=== PATIENT | male | born 1960 | race African-American/Black ===

== ENCOUNTER 2018-11-15 19:49 | Inpatient (IN) ==
[2018-11-15] MEDS ORDERED: hydrALAZINE 20 MG/1 ML VIAL IV STA (21:04)
[2018-11-15 22:56] LABS: Basophils % 0.5 % (0.0-0.8); Eosinophils # 0.1 10*3/uL (0.0-0.87); Eosinophils % 1.4 % (0.00-10.9); Hematocrit 31.1 VOL% (42.0-52.0); Immature Granulocytes % 0.4 %; Immature Granulocytes Absolute 0.03 #; Lymphocytes # 1.4 10*3/uL (1.4-4.0); Lymphocytes % 17.7 % (21.2-54.2); Mean Corpuscular HGB Conc 28.9 GM/DL (32-36); Mean Corpuscular Hemoglobin 24 PG (27-34); Mean Corpuscular Volume 84.3 FL (87-102); Mean Platelet Volume 10.5 FL (9.6-12.0); Monocytes # 0.6 10*3/uL (0.11-0.8); NRBC # 0.04 10*3/uL; Neutrophils # 5.8 10*3/uL (1.4-7.4); Platelet Count 305 T/CUMM (130-400); Red Blood Count 3.69 MC/CUMM (3.8-5.5); Red Cell Distribution Width 17.7 % (9.3-17.3); White Blood Count 7.9 T/CUMM (4-12)
[2018-11-15 23:01] LABS: Albumin 2.8 G/DL (3.4-5.0); Bilirubin,Total 0.5 MG/DL (0.2-1.0); Calcium 8.4 MG/DL (8.5-10.1); Osmolality,Calculated 287.7 MOS/KG (273-304); Potassium 4.8 MMOL/L (3.5-5.1); Total Protein 9.8 G/DL (6.4-8.3)
[2018-11-15 23:03] LABS: Apearance,Urine Slightly Hazy (Clear); Bilirubin,Urine Negative (Negative); Blood, Urine Small mg/dL (Negative); Glucose,Urine (UA) Negative (Negative); Hyaline Casts,Urine 3 /LPF (0-3); Ketones,Urine Negative (Negative); Mucus,Urine Occasional /LPF (Occasional); Nitrite,Urine Negative (Negative); Protein,Urine 30 MG/DL; RBC,Urine 1 /HPF (0-4); Squamous Epithelial Cell,Urine Occasional /HPF (0-10); Urine Color Yellow (Yellow); Urine Specific Gravity 1.013 (1.001-1.035); Urine Urobilinogen < 2.0 EU/DL (0.2-1.0); WBC,Urine 4 /HPF (0-6)
[2018-11-15] MEDS ORDERED: ENOXAPARIN 100 MG/ML SYRINGE SUBCUT STA (23:17)
[2018-11-15] MEDS ORDERED: ASPIRIN 325 MG TABLET PO STA (23:17)
[2018-11-16] MEDS ORDERED: MAGNESIUM SULF RIDER 4 GM in PREMIX 1 EACH IV PRN (03:08)
[2018-11-16] MEDS ORDERED: FUROSEMIDE 40 MG/4 ML VIAL IV ONE (03:08)
[2018-11-16] MEDS ORDERED: ONDANSETRON 4 MG/2 ML VIAL IV PRN (03:08)
[2018-11-16] MEDS ORDERED: POTASSIUM CHLORIDE 20 MEQ TABLET PO PRN (03:08)
[2018-11-16] MEDS ORDERED: diphenhydrAMINE CAP 25 MG CAPSULE PO PRN (03:08)
[2018-11-16] MEDS ORDERED: BISACODYL 5 MG TABLET PO PRN (03:08)
[2018-11-16] MEDS ORDERED: GLUCAGON 1 MG VIAL IM PRN (03:08)
[2018-11-16] MEDS ORDERED: MORPHINE 4 MG/1 ML VIAL IV PRN (03:08)
[2018-11-16] MEDS ORDERED: NICOTINE 21 MG/24 HR PATCH TRANSDERM PRN (03:08)
[2018-11-16] MEDS ORDERED: MAGNESIUM SULF RIDER 2 GM in PREMIX 1 EACH IV PRN (03:08)
[2018-11-16] MEDS ORDERED: DEXTROSE 50% 25 GM/50 ML SYRINGE IV PRN (03:08)
[2018-11-16] MEDS ORDERED: ACETAMINOPHEN 325 MG TABLET PO PRN (03:08)
[2018-11-16] MEDS ORDERED: LEVOFLOXACIN INJ 500 MG in PREMIX 1 EACH IV SCH (03:08)
[2018-11-16] MEDS: ALBUTEROL/IPRATROPIUM 3 ML NEB RESP TX SCH ×6 (03:50→23:23)
[2018-11-16 05:00] LABS: Basophils % 0.4 % (0.0-0.8); Eosinophils # 0.1 10*3/uL (0.0-0.87); Eosinophils % 1.1 % (0.00-10.9); Hematocrit 30.5 VOL% (42.0-52.0); Immature Granulocytes % 0.7 %; Immature Granulocytes Absolute 0.06 #; Lymphocytes # 1.3 10*3/uL (1.4-4.0); Lymphocytes % 15.4 % (21.2-54.2); Mean Corpuscular HGB Conc 28.5 GM/DL (32-36); Mean Corpuscular Hemoglobin 24 PG (27-34); Mean Corpuscular Volume 84.7 FL (87-102); Mean Platelet Volume 10.6 FL (9.6-12.0); Monocytes # 0.6 10*3/uL (0.11-0.8); Monocytes % 6.5 % (1.7-12.7); NRBC # 0.05 10*3/uL; Neutrophils # 6.4 10*3/uL (1.4-7.4); Neutrophils % 75.9 % (38.7-73.9); Platelet Count 292 T/CUMM (130-400); Red Cell Distribution Width 17.7 % (9.3-17.3); White Blood Count 8.4 T/CUMM (4-12)
[2018-11-16 05:02] LABS: Hemoglobin 8.7 GM/DL (14.0-18.0)
[2018-11-16 05:03] LABS: Calcium 8.6 MG/DL (8.5-10.1); Osmolality,Calculated 291.5 MOS/KG (273-304); Potassium 4.1 MMOL/L (3.5-5.1); Risk Ratio 2.32; Thyroid Stimulating Hormone 2.63 uIU/ml (0.358-3.74); VLDL CHOLESTEROL 12.2 MG/DL
[2018-11-16 05:04] LABS: Troponin I 0.051 NG/ML (0.00-0.045)
[2018-11-16 05:10] LABS: Hypochromasia 1+; Platelet Estimate Adequate
[2018-11-16 05:11] LABS: Ovalocytes Slight
[2018-11-16] MEDS: ENOXAPARIN 40 MG/0.4 ML SYRINGE SUBCUT SCH (09:31)
[2018-11-16] MEDS: INSULIN REGULAR 100 UNIT/ML SUBCUT SCH ×4 (09:31→22:50)
[2018-11-16] MEDS: PANTOPRAZOLE 40 MG TABLET PO SCH (09:32)
[2018-11-16] MEDS ORDERED: hydrALAZINE 20 MG/1 ML VIAL IV PRN (17:49)
[2018-11-16] MEDS: cefTRIAXone 1,000 MG in SYRINGE 1 EACH IV SCH (18:13)
[2018-11-16] MEDS: AZITHROMYCIN INJ 500 MG in SODIUM CHLORIDE 0.9% 250 ML IV SCH (18:19)
[2018-11-17] MEDS: ALBUTEROL/IPRATROPIUM 3 ML NEB RESP TX SCH ×6 (02:44→23:41)
[2018-11-17] MEDS: INSULIN REGULAR 100 UNIT/ML SUBCUT SCH ×4 (08:52→20:44)
[2018-11-17] MEDS: PANTOPRAZOLE 40 MG TABLET PO SCH (08:52)
[2018-11-17] MEDS: FUROSEMIDE 40 MG/4 ML VIAL IV SCH (08:53)
[2018-11-17] MEDS: ENOXAPARIN 40 MG/0.4 ML SYRINGE SUBCUT SCH (10:31)
[2018-11-17] MEDS: SODIUM CHLORIDE 0.9% 1,000 ML IV SCH (16:20)
[2018-11-17] MEDS: cefTRIAXone 1,000 MG in SYRINGE 1 EACH IV SCH (18:20)
[2018-11-17] MEDS: AZITHROMYCIN INJ 500 MG in SODIUM CHLORIDE 0.9% 250 ML IV SCH (18:25)
[2018-11-18] MEDS: ALBUTEROL/IPRATROPIUM 3 ML NEB RESP TX SCH ×6 (02:41→23:33)
[2018-11-18 07:20] LABS: Calcium 8.5 MG/DL (8.5-10.1); Potassium 4.3 MMOL/L (3.5-5.1)
[2018-11-18] MEDS: PANTOPRAZOLE 40 MG TABLET PO SCH (08:29)
[2018-11-18] MEDS: INSULIN REGULAR 100 UNIT/ML SUBCUT SCH ×4 (08:30→20:43)
[2018-11-18] MEDS: FUROSEMIDE 40 MG/4 ML VIAL IV SCH ×2 (08:30→17:05)
[2018-11-18] MEDS: ENOXAPARIN 40 MG/0.4 ML SYRINGE SUBCUT SCH (08:34)
[2018-11-18] MEDS: SODIUM CHLORIDE 0.9% 1,000 ML IV SCH (15:47)
[2018-11-18] MEDS: AZITHROMYCIN 250 MG TABLET PO SCH (17:17)
[2018-11-18] MEDS: cefTRIAXone 1,000 MG in SYRINGE 1 EACH IV SCH (17:18)
[2018-11-19] MEDS: SODIUM CHLORIDE 0.9% 1,000 ML IV SCH ×2 (02:00→15:06)
[2018-11-19] MEDS: ALBUTEROL/IPRATROPIUM 3 ML NEB RESP TX SCH ×4 (03:31→14:22)
[2018-11-19] MEDS: INSULIN REGULAR 100 UNIT/ML SUBCUT SCH ×3 (09:29→16:35)
[2018-11-19] MEDS: ENOXAPARIN 40 MG/0.4 ML SYRINGE SUBCUT SCH (09:30)
[2018-11-19] MEDS: AZITHROMYCIN 250 MG TABLET PO SCH (09:31)
[2018-11-19] MEDS: FUROSEMIDE 40 MG/4 ML VIAL IV SCH ×2 (09:31→15:06)
[2018-11-19] MEDS: PANTOPRAZOLE 40 MG TABLET PO SCH (09:31)
[2018-11-19 09:47] LABS: Calcium 8.4 MG/DL (8.5-10.1); Osmolality,Calculated 285.2 MOS/KG (273-304); Potassium 4.2 MMOL/L (3.5-5.1)
[2018-11-19] MEDS ORDERED: INSULIN GLARGINE 100 UNIT/ML SUBCUT SCH (10:00)
[2018-11-19] MEDS ORDERED: SILVER NITRATE STICK 1 EACH TOP ONE (12:47)
[2018-11-19 17:21] VITALS: BP 136/62
[2018-11-19] MEDS: cefTRIAXone 1,000 MG in SYRINGE 1 EACH IV SCH (17:52)
== END 2018-11-19 19:25 | disposition home health service (06) | DRG 194 ==
LOC: N.ED 19:49 → N.EDINP 19:49 → N.TELES 11-16 00:08
PROVIDERS: ADMIT Internal Medicine; ATTEND Internal Medicine

== ENCOUNTER 2018-11-29 21:04 | Inpatient (IN) ==
[2018-11-29] MEDS ORDERED: FUROSEMIDE 100 MG/10 ML VIAL IV STA (21:15)
[2018-11-29] MEDS ORDERED: ONDANSETRON 4 MG/2 ML VIAL IV STA (21:15)
[2018-11-29] MEDS ORDERED: NITROGLYCERIN 2% OINT 1 INCH/GM PACK TOP STA (21:15)
[2018-11-29] MEDS ORDERED: ALBUTEROL/IPRATROPIUM 3 ML NEB RESP TX STA (21:15)
[2018-11-29] MEDS ORDERED: ASPIRIN 325 MG TABLET PO STA (21:15)
[2018-11-29] MEDS ORDERED: MORPHINE 4 MG/1 ML VIAL IV STA (21:15)
[2018-11-29 21:35] LABS: INR 1.1; PT Patient Result 11.7 SECS
[2018-11-29 21:45] LABS: Basophils # 0.1 10*3/uL (0.0-0.2); Basophils % 0.5 % (0.0-0.8); Eosinophils # 0.2 10*3/uL (0.0-0.87); Eosinophils % 1.7 % (0.00-10.9); Hematocrit 28.2 VOL% (42.0-52.0); Hemoglobin 7.9 GM/DL (14.0-18.0); Immature Granulocytes % 0.8 %; Immature Granulocytes Absolute 0.08 #; Lymphocytes # 1.1 10*3/uL (1.4-4.0); Mean Corpuscular Hemoglobin 24 PG (27-34); Mean Corpuscular Volume 84.4 FL (87-102); Mean Platelet Volume 9.9 FL (9.6-12.0); Monocytes # 0.7 10*3/uL (0.11-0.8); Monocytes % 7.3 % (1.7-12.7); NRBC # 0.07 10*3/uL; Neutrophils # 7.7 10*3/uL (1.4-7.4); Neutrophils % 78.7 % (38.7-73.9); Platelet Count 333 T/CUMM (130-400); Red Blood Count 3.34 MC/CUMM (3.8-5.5); Red Cell Distribution Width 17.9 % (9.3-17.3); White Blood Count 9.7 T/CUMM (4-12)
[2018-11-29 21:48] LABS: Albumin 2.7 G/DL (3.4-5.0); Bilirubin,Total 0.4 MG/DL (0.2-1.0); Calcium 8.2 MG/DL (8.5-10.1); Osmolality,Calculated 289.7 MOS/KG (273-304); Potassium 4.2 MMOL/L (3.5-5.1); Total Protein 9.9 G/DL (6.4-8.3)
[2018-11-29 22:41] LABS: ABG Base Excess 3.8 MMOL/L (-2.5-2.5); ABG HCO3 33.6 MMOL/L (20-26); ABG Oxygen Saturation 98.7 % (95-100); ABG PO2 172.8 MM HG (80-95); ABG TCO2 36.4 MMOL/L (23-27); Allen Test Positive; Pt O2 Delivery Device Other
[2018-11-29 22:44] LABS: ABG PCO2 92.5 MM HG (35-48); ABG PH 7.178 (7.35-7.45)
[2018-11-29 22:45] LABS: Apearance,Urine CLEAR (Clear); Bacteria,Urine Occasional /HPF (Few); Bilirubin,Urine Negative (Negative); Blood, Urine Small mg/dL (Negative); Glucose,Urine (UA) Negative (Negative); Ketones,Urine Negative (Negative); Mucus,Urine Occasional /LPF (Occasional); Nitrite,Urine Negative (Negative); Protein,Urine Negative; RBC,Urine 2 /HPF (0-4); Squamous Epithelial Cell,Urine Occasional /HPF (0-10); Urine Color Straw (Yellow); Urine Specific Gravity 1.006 (1.001-1.035); Urine Urobilinogen < 2.0 EU/DL (0.2-1.0); WBC,Urine 2 /HPF (0-6)
[2018-11-29 22:51] LABS: Anisocytosis 1+; Hypochromasia 1+; Poikilocytosis 1+; Polychromasia Slight
[2018-11-29 22:52] LABS: Platelet Estimate Normal
[2018-11-29] MEDS ORDERED: ONDANSETRON 4 MG/2 ML VIAL IV PRN (22:58)
[2018-11-29] MEDS ORDERED: DEXTROSE 50% 25 GM/50 ML VIAL IV PRN (23:05)
[2018-11-29] MEDS ORDERED: GLUCAGON 1 MG VIAL IM PRN (23:05)
[2018-11-30 00:08] LABS: ABG Base Excess 3.5 MMOL/L (-2.5-2.5); ABG HCO3 33.6 MMOL/L (20-26); ABG PO2 135.8 MM HG (80-95); ABG TCO2 36.6 MMOL/L (23-27); Allen Test Positive; Pt O2 Delivery Device Other
[2018-11-30 00:14] LABS: ABG PH 7.162 (7.35-7.45)
[2018-11-30] MEDS ORDERED: FUROSEMIDE 40 MG/4 ML VIAL IV ONE (00:35)
[2018-11-30 02:22] LABS: ABG Base Excess 0.6 MMOL/L (-2.5-2.5); ABG Oxygen Saturation 95.5 % (95-100); ABG TCO2 29.7 MMOL/L (23-27); Allen Test Positive; Pt O2 Delivery Device BIPAP
[2018-11-30 02:25] LABS: ABG PCO2 84.5 MM HG (35-48); ABG PH 7.169 (7.35-7.45)
[2018-11-30] MEDS: INSULIN LISPRO 100 UNIT/ML SUBCUT SCH ×5 (02:32→23:54)
[2018-11-30] MEDS: HEPARIN 5,000 UNIT/1 ML VIAL SUBCUT SCH ×4 (02:50→23:07)
[2018-11-30] MEDS: ALBUTEROL/IPRATROPIUM 3 ML NEB RESP TX SCH ×6 (03:20→23:58)
[2018-11-30 04:19] LABS: ABG Base Excess 1.7 MMOL/L (-2.5-2.5); ABG HCO3 25.9 MMOL/L (20-26); ABG Oxygen Saturation 92.2 % (95-100); ABG PO2 76.1 MM HG (80-95); ABG TCO2 30.4 MMOL/L (23-27); Allen Test Positive; Pt O2 Delivery Device BIPAP
[2018-11-30 04:38] LABS: ABG PCO2 83.4 MM HG (35-48); ABG PH 7.189 (7.35-7.45)
[2018-11-30 05:01] LABS: Basophils % 0.4 % (0.0-0.8); Eosinophils # 0.1 10*3/uL (0.0-0.87); Eosinophils % 1.1 % (0.00-10.9); Hematocrit 27.7 VOL% (42.0-52.0); Immature Granulocytes % 1.8 %; Immature Granulocytes Absolute 0.19 #; Lymphocytes # 0.8 10*3/uL (1.4-4.0); Lymphocytes % 7.3 % (21.2-54.2); Mean Corpuscular HGB Conc 28.2 GM/DL (32-36); Mean Corpuscular Hemoglobin 24 PG (27-34); Mean Corpuscular Volume 86.3 FL (87-102); Mean Platelet Volume 9.6 FL (9.6-12.0); Monocytes # 0.8 10*3/uL (0.11-0.8); Monocytes % 7.1 % (1.7-12.7); NRBC # 0.06 10*3/uL; Neutrophils # 8.9 10*3/uL (1.4-7.4); Neutrophils % 82.3 % (38.7-73.9); Platelet Count 303 T/CUMM (130-400); Red Blood Count 3.21 MC/CUMM (3.8-5.5); White Blood Count 10.8 T/CUMM (4-12)
[2018-11-30 05:12] LABS: Hemoglobin 7.8 GM/DL (14.0-18.0)
[2018-11-30 05:18] LABS: Calcium 8.3 MG/DL (8.5-10.1); Osmolality,Calculated 288.8 MOS/KG (273-304); Potassium 4.8 MMOL/L (3.5-5.1)
[2018-11-30 05:19] LABS: Platelet Estimate Adequate
[2018-11-30 05:20] LABS: Hypochromasia 1+
[2018-11-30 05:21] LABS: Troponin I < 0.015 NG/ML (0.00-0.045)
[2018-11-30] MEDS ORDERED: FUROSEMIDE 40 MG/4 ML VIAL IV SCH (08:00)
[2018-11-30] MEDS: FUROSEMIDE 40 MG/4 ML VIAL IV SCH ×2 (08:25→16:00)
[2018-11-30] MEDS ORDERED: ASPIRIN EC 325 MG TABLET PO SCH (09:00)
[2018-11-30] MEDS ORDERED: PANTOPRAZOLE 40 MG TABLET PO SCH (09:00)
[2018-11-30] MEDS: GABAPENTIN 100 MG CAPSULE PO SCH ×3 (10:10→20:40)
[2018-11-30] MEDS: ROSUVASTATIN 20 MG TABLET PO SCH (10:10)
[2018-11-30] MEDS: INSULIN GLARGINE 100 UNIT/ML SUBCUT SCH (10:10)
[2018-11-30 11:35] LABS: Creatinine,Urine Random 22 MG/DL; Total Protein,Urine Random 22 MG/DL; Urea Nitrogen, Urine Random 231 MG/DL
[2018-11-30 13:00] LABS: Immuno Free Light Chain Kappa 20.58 MG/DL (0.33-1.94); Immuno Free Light Chain Lambda 14.62 MG/DL (0.57-2.63); Immuno Free Light Chain Ratio 1.41 MG/DL (0.26-1.65)
[2018-11-30 13:13] LABS: Troponin I < 0.015 NG/ML (0.00-0.045)
[2018-11-30 13:27] LABS: ABG Base Excess 3.1 MMOL/L (-2.5-2.5); ABG HCO3 27.2 MMOL/L (20-26); ABG PH 7.241 (7.35-7.45); ABG PO2 76.8 MM HG (80-95); ABG TCO2 30.5 MMOL/L (23-27); Pt O2 Delivery Device Other
[2018-11-30 13:28] LABS: ABG PCO2 74.2 MM HG (35-48)
[2018-11-30] MEDS: methylPREDNISolone SOD SUC 40 MG/1 ML VIAL IV SCH (18:15)
[2018-11-30] MEDS: miSOPROStol 200 MCG TABLET PO SCH ×2 (18:20→20:40)
[2018-11-30] MEDS ORDERED: CARVEDILOL 3.125 MG TABLET PO SCH (21:00)
[2018-12-01] MEDS: methylPREDNISolone SOD SUC 40 MG/1 ML VIAL IV SCH ×3 (01:42→17:40)
[2018-12-01] MEDS: ALBUTEROL/IPRATROPIUM 3 ML NEB RESP TX SCH ×6 (03:20→23:16)
[2018-12-01] MEDS: INSULIN LISPRO 100 UNIT/ML SUBCUT SCH ×3 (05:30→17:39)
[2018-12-01 06:28] LABS: Calcium 8.7 MG/DL (8.5-10.1); Osmolality,Calculated 289.1 MOS/KG (273-304); Potassium 5.4 MMOL/L (3.5-5.1)
[2018-12-01 06:46] LABS: Basophils % 0.1 % (0.0-0.8); Hematocrit 27.8 VOL% (42.0-52.0); Immature Granulocytes % 1.4 %; Immature Granulocytes Absolute 0.15 #; Lymphocytes # 0.6 10*3/uL (1.4-4.0); Lymphocytes % 5.2 % (21.2-54.2); Mean Corpuscular HGB Conc 27.3 GM/DL (32-36); Mean Corpuscular Hemoglobin 24 PG (27-34); Mean Corpuscular Volume 87.4 FL (87-102); Mean Platelet Volume 10.4 FL (9.6-12.0); Monocytes # 0.2 10*3/uL (0.11-0.8); Monocytes % 2.2 % (1.7-12.7); NRBC # 0.04 10*3/uL; Neutrophils # 9.7 10*3/uL (1.4-7.4); Neutrophils % 91.1 % (38.7-73.9); Platelet Count 299 T/CUMM (130-400); Red Blood Count 3.18 MC/CUMM (3.8-5.5); Red Cell Distribution Width 18.3 % (9.3-17.3); White Blood Count 10.7 T/CUMM (4-12)
[2018-12-01 06:49] LABS: Hemoglobin 7.6 GM/DL (14.0-18.0)
[2018-12-01 06:50] LABS: Hypochromasia 1+; Ovalocytes Slight; Platelet Estimate Adequate
[2018-12-01] MEDS: miSOPROStol 200 MCG TABLET PO SCH ×4 (08:47→21:42)
[2018-12-01] MEDS: ROSUVASTATIN 20 MG TABLET PO SCH (08:47)
[2018-12-01] MEDS: THEOPHYLLINE ER (24 HR) 400 MG CAPSULE PO SCH (08:48)
[2018-12-01] MEDS: CARVEDILOL 6.25 MG TABLET PO SCH ×2 (08:48→21:42)
[2018-12-01] MEDS: HEPARIN 5,000 UNIT/1 ML VIAL SUBCUT SCH ×2 (08:48→16:25)
[2018-12-01] MEDS: GABAPENTIN 100 MG CAPSULE PO SCH (08:48)
[2018-12-01] MEDS: ASPIRIN EC 81 MG TABLET PO SCH (08:48)
[2018-12-01] MEDS: INSULIN GLARGINE 100 UNIT/ML SUBCUT SCH (08:49)
[2018-12-01 08:58] LABS: Albumin (SPE) 3.5 G/DL (3.2-5.3); Albumin (SPE) Rel % 35.5 %; Alpha 1 (SPE) 0.4 G/DL (0.1-0.4); Alpha 1 (SPE) Rel % 4.4 %; Alpha 2 (SPE) 0.9 G/DL (0.4-1.0); Alpha 2 (SPE) Rel % 9.5 %; Beta (SPE) 0.9 G/DL (0.5-1.1); Beta (SPE) Rel % 9.3 %; Gamma (SPE) 4.1 G/DL (0.7-1.7); Gamma (SPE) Rel % 41.3 %
[2018-12-01 08:59] LABS: ABG Base Excess 1.3 MMOL/L (-2.5-2.5); ABG HCO3 25.6 MMOL/L (20-26); ABG Oxygen Saturation 94.8 % (95-100); ABG PH 7.228 (7.35-7.45); ABG PO2 79.6 MM HG (80-95); ABG TCO2 28.8 MMOL/L (23-27); Allen Test Positive; Pt O2 Delivery Device Other
[2018-12-01 09:02] LABS: ABG PCO2 72.1 MM HG (35-48)
[2018-12-01 10:09] LABS: Random Urine Protein (Bench) 22 MG/DL (<11.9)
[2018-12-01] MEDS: ALLOPURINOL 100 MG TABLET PO SCH ×2 (10:21→21:42)
[2018-12-02] MEDS: HEPARIN 5,000 UNIT/1 ML VIAL SUBCUT SCH ×3 (00:13→16:01)
[2018-12-02] MEDS: INSULIN LISPRO 100 UNIT/ML SUBCUT SCH ×4 (00:13→17:42)
[2018-12-02] MEDS ORDERED: hydrALAZINE 20 MG/1 ML VIAL IV PRN (01:07)
[2018-12-02] MEDS: methylPREDNISolone SOD SUC 40 MG/1 ML VIAL IV SCH ×3 (04:16→20:33)
[2018-12-02] MEDS: ALBUTEROL/IPRATROPIUM 3 ML NEB RESP TX SCH ×6 (04:32→23:00)
[2018-12-02 04:47] LABS: ABG HCO3 26.2 MMOL/L (20-26); ABG Oxygen Saturation 94.6 % (95-100); ABG PO2 80.9 MM HG (80-95); Allen Test Positive; Pt O2 Delivery Device Other
[2018-12-02 04:50] LABS: ABG PCO2 69.2 MM HG (35-48)
[2018-12-02 06:28] LABS: Albumin 2.6 G/DL (3.4-5.0); Bilirubin,Total 0.7 MG/DL (0.2-1.0); Calcium 8.8 MG/DL (8.5-10.1); Osmolality,Calculated 295.7 MOS/KG (273-304); Potassium 5.1 MMOL/L (3.5-5.1); Total Protein 9.7 G/DL (6.4-8.3)
[2018-12-02 07:25] LABS: Basophils % 0.1 % (0.0-0.8); Hematocrit 25.3 VOL% (42.0-52.0); Immature Granulocytes % 1.3 %; Immature Granulocytes Absolute 0.17 #; Lymphocytes # 0.7 10*3/uL (1.4-4.0); Lymphocytes % 5.5 % (21.2-54.2); Mean Corpuscular HGB Conc 28.5 GM/DL (32-36); Mean Corpuscular Hemoglobin 24 PG (27-34); Mean Corpuscular Volume 85.5 FL (87-102); Mean Platelet Volume 10.1 FL (9.6-12.0); Monocytes # 0.8 10*3/uL (0.11-0.8); Monocytes % 6.6 % (1.7-12.7); NRBC # 0.19 10*3/uL; Neutrophils # 11.1 10*3/uL (1.4-7.4); Neutrophils % 86.5 % (38.7-73.9); Platelet Count 297 T/CUMM (130-400); Red Blood Count 2.96 MC/CUMM (3.8-5.5); Red Cell Distribution Width 18.3 % (9.3-17.3); White Blood Count 12.8 T/CUMM (4-12)
[2018-12-02 07:27] LABS: Hemoglobin 7.2 GM/DL (14.0-18.0); Hypochromasia 1+; Ovalocytes Slight; Platelet Estimate Adequate
[2018-12-02] MEDS: INSULIN GLARGINE 100 UNIT/ML SUBCUT SCH (08:58)
[2018-12-02] MEDS: THEOPHYLLINE ER (24 HR) 400 MG CAPSULE PO SCH (08:59)
[2018-12-02] MEDS: GABAPENTIN 100 MG CAPSULE PO SCH ×2 (08:59→20:33)
[2018-12-02] MEDS: miSOPROStol 200 MCG TABLET PO SCH ×4 (08:59→20:33)
[2018-12-02] MEDS: CARVEDILOL 6.25 MG TABLET PO SCH ×2 (09:00→20:33)
[2018-12-02] MEDS: ROSUVASTATIN 20 MG TABLET PO SCH (09:00)
[2018-12-02] MEDS: ASPIRIN EC 81 MG TABLET PO SCH (09:00)
[2018-12-02] MEDS: ALLOPURINOL 100 MG TABLET PO SCH ×2 (09:00→20:33)
[2018-12-02] MEDS ORDERED: SODIUM CHLORIDE 0.9% 250 ML IV ONE (20:58)
[2018-12-02] MEDS ORDERED: INSULIN REGULAR 100 UNIT/ML IV ONE (20:59)
[2018-12-02 21:58] LABS: Calcium 8.3 MG/DL (8.5-10.1); Osmolality,Calculated 300.2 MOS/KG (273-304)
[2018-12-02] MEDS ORDERED: SODIUM POLYSTYRENE SULFATE 15 GM/60 ML BOTTLE PO ONE (22:04)
[2018-12-02] MEDS ORDERED: ALBUTEROL NEB SOLN 5 MG/ML 20 ML/BOTTLE CONT NEB ONE (22:05)
[2018-12-03] MEDS: HEPARIN 5,000 UNIT/1 ML VIAL SUBCUT SCH ×4 (00:14→23:36)
[2018-12-03] MEDS: INSULIN LISPRO 100 UNIT/ML SUBCUT SCH ×5 (00:15→20:48)
[2018-12-03] MEDS: ALBUTEROL/IPRATROPIUM 3 ML NEB RESP TX SCH ×6 (03:09→23:27)
[2018-12-03 04:29] LABS: Calcium 8.4 MG/DL (8.5-10.1); Osmolality,Calculated 300.8 MOS/KG (273-304)
[2018-12-03 04:33] LABS: ABG Base Excess 2.7 MMOL/L (-2.5-2.5); ABG HCO3 26.7 MMOL/L (20-26); ABG PCO2 58.4 MM HG (35-48); ABG PH 7.314 (7.35-7.45); ABG PO2 69.9 MM HG (80-95); ABG TCO2 28.1 MMOL/L (23-27); Allen Test Positive; Pt O2 Delivery Device Other
[2018-12-03] MEDS: GABAPENTIN 100 MG CAPSULE PO SCH ×2 (08:53→20:46)
[2018-12-03] MEDS: miSOPROStol 200 MCG TABLET PO SCH (08:53)
[2018-12-03] MEDS: ROSUVASTATIN 20 MG TABLET PO SCH (08:54)
[2018-12-03] MEDS: THEOPHYLLINE ER (24 HR) 400 MG CAPSULE PO SCH (08:54)
[2018-12-03] MEDS: ALLOPURINOL 100 MG TABLET PO SCH (08:54)
[2018-12-03] MEDS: ASPIRIN EC 81 MG TABLET PO SCH (08:55)
[2018-12-03] MEDS: methylPREDNISolone SOD SUC 40 MG/1 ML VIAL IV SCH ×2 (08:55→20:46)
[2018-12-03] MEDS: CARVEDILOL 6.25 MG TABLET PO SCH ×2 (08:55→20:48)
[2018-12-03] MEDS: FUROSEMIDE 40 MG/4 ML VIAL IV SCH ×2 (08:56→17:21)
[2018-12-03] MEDS: INSULIN GLARGINE 100 UNIT/ML SUBCUT SCH (08:57)
[2018-12-03] MEDS: ALLOPURINOL 300 MG TABLET PO SCH (12:02)
[2018-12-03] MEDS: FAMOTIDINE 20 MG TABLET PO SCH (12:02)
[2018-12-03] MEDS ORDERED: FUROSEMIDE 40 MG/4 ML VIAL IV SCH (16:00)
[2018-12-04] MEDS: ALBUTEROL/IPRATROPIUM 3 ML NEB RESP TX SCH ×6 (03:09→22:48)
[2018-12-04 05:47] LABS: Basophils % 0.1 % (0.0-0.8); Hematocrit 25.7 VOL% (42.0-52.0); Hemoglobin 7.3 GM/DL (14.0-18.0); Immature Granulocytes % 0.9 %; Lymphocytes # 0.7 10*3/uL (1.4-4.0); Lymphocytes % 6.4 % (21.2-54.2); Mean Corpuscular HGB Conc 28.4 GM/DL (32-36); Mean Corpuscular Hemoglobin 24 PG (27-34); Mean Corpuscular Volume 82.9 FL (87-102); Mean Platelet Volume 9.7 FL (9.6-12.0); Monocytes # 0.6 10*3/uL (0.11-0.8); Monocytes % 5.1 % (1.7-12.7); NRBC # 0.34 10*3/uL; Neutrophils # 9.8 10*3/uL (1.4-7.4); Neutrophils % 87.5 % (38.7-73.9); Platelet Count 310 T/CUMM (130-400); Red Cell Distribution Width 17.8 % (9.3-17.3); White Blood Count 11.2 T/CUMM (4-12)
[2018-12-04 06:09] LABS: Calcium 8.4 MG/DL (8.5-10.1); Osmolality,Calculated 307.4 MOS/KG (273-304); Potassium 4.7 MMOL/L (3.5-5.1)
[2018-12-04 06:10] LABS: Anisocytosis 1+; Macrocytosis 1+; Platelet Estimate Normal; Target Cells 1+
[2018-12-04] MEDS: ROSUVASTATIN 20 MG TABLET PO SCH (08:29)
[2018-12-04] MEDS: THEOPHYLLINE ER (24 HR) 400 MG CAPSULE PO SCH (08:29)
[2018-12-04] MEDS: ASPIRIN EC 81 MG TABLET PO SCH (08:30)
[2018-12-04] MEDS: methylPREDNISolone SOD SUC 40 MG/1 ML VIAL IV SCH ×2 (08:30→20:11)
[2018-12-04] MEDS: ALLOPURINOL 300 MG TABLET PO SCH (08:30)
[2018-12-04] MEDS: FUROSEMIDE 40 MG/4 ML VIAL IV SCH ×2 (08:30→17:23)
[2018-12-04] MEDS: FAMOTIDINE 20 MG TABLET PO SCH (08:30)
[2018-12-04] MEDS: CARVEDILOL 6.25 MG TABLET PO SCH ×2 (08:30→20:09)
[2018-12-04] MEDS: HEPARIN 5,000 UNIT/1 ML VIAL SUBCUT SCH ×3 (08:30→23:48)
[2018-12-04] MEDS: GABAPENTIN 100 MG CAPSULE PO SCH ×2 (08:30→20:09)
[2018-12-04] MEDS: INSULIN LISPRO 100 UNIT/ML SUBCUT SCH ×4 (08:31→20:53)
[2018-12-04] MEDS: INSULIN GLARGINE 100 UNIT/ML SUBCUT SCH (08:31)
[2018-12-04] MEDS ORDERED: INSULIN GLARGINE 100 UNIT/ML SUBCUT SCH (08:42)
[2018-12-04] MEDS ORDERED: INSULIN GLARGINE 100 UNIT/ML SUBCUT ONE (09:30)
[2018-12-04] MEDS ORDERED: INSULIN REGULAR 100 UNIT/ML SUBCUT ONE (14:39)
[2018-12-04] MEDS: POLYETHYLENE GLYCOL POWDER 17 GM PACK PO SCH (17:25)
[2018-12-04] MEDS ORDERED: predniSONE 10 MG TABLET PO ONE (19:31)
[2018-12-05] MEDS: ALBUTEROL/IPRATROPIUM 3 ML NEB RESP TX SCH ×6 (02:38→23:55)
[2018-12-05 05:16] LABS: Basophils % 0.1 % (0.0-0.8); Eosinophils % 0.1 % (0.00-10.9); Hematocrit 25.6 VOL% (42.0-52.0); Hemoglobin 7.3 GM/DL (14.0-18.0); Immature Granulocytes Absolute 0.12 #; Lymphocytes % 8.2 % (21.2-54.2); Mean Corpuscular HGB Conc 28.5 GM/DL (32-36); Mean Corpuscular Hemoglobin 23 PG (27-34); Mean Corpuscular Volume 82.1 FL (87-102); Mean Platelet Volume 10.6 FL (9.6-12.0); Monocytes # 1.7 10*3/uL (0.11-0.8); Monocytes % 13.2 % (1.7-12.7); NRBC # 0.48 10*3/uL; Neutrophils # 9.7 10*3/uL (1.4-7.4); Neutrophils % 77.4 % (38.7-73.9); Platelet Count 324 T/CUMM (130-400); Red Blood Count 3.12 MC/CUMM (3.8-5.5); Red Cell Distribution Width 17.7 % (9.3-17.3); White Blood Count 12.6 T/CUMM (4-12)
[2018-12-05 05:38] LABS: Calcium 8.6 MG/DL (8.5-10.1); Osmolality,Calculated 310.2 MOS/KG (273-304); Potassium 4.2 MMOL/L (3.5-5.1)
[2018-12-05 05:42] LABS: Platelet Estimate Normal; Polychromasia Few
[2018-12-05 05:43] LABS: Hypochromasia Slight
[2018-12-05] MEDS: INSULIN LISPRO 100 UNIT/ML SUBCUT SCH ×4 (06:42→22:37)
[2018-12-05] MEDS: HEPARIN 5,000 UNIT/1 ML VIAL SUBCUT SCH ×3 (06:43→23:32)
[2018-12-05] MEDS ORDERED: INSULIN GLARGINE 100 UNIT/ML SUBCUT SCH (09:00)
[2018-12-05] MEDS: GABAPENTIN 100 MG CAPSULE PO SCH ×2 (09:11→20:10)
[2018-12-05] MEDS: ASPIRIN EC 81 MG TABLET PO SCH (09:11)
[2018-12-05] MEDS: ROSUVASTATIN 20 MG TABLET PO SCH (09:11)
[2018-12-05] MEDS: FAMOTIDINE 20 MG TABLET PO SCH (09:11)
[2018-12-05] MEDS: CARVEDILOL 6.25 MG TABLET PO SCH ×2 (09:11→20:10)
[2018-12-05] MEDS: THEOPHYLLINE ER (24 HR) 400 MG CAPSULE PO SCH (09:11)
[2018-12-05] MEDS: POLYETHYLENE GLYCOL POWDER 17 GM PACK PO SCH (09:12)
[2018-12-05] MEDS: FUROSEMIDE 40 MG/4 ML VIAL IV SCH ×2 (09:12→18:00)
[2018-12-05] MEDS: methylPREDNISolone SOD SUC 40 MG/1 ML VIAL IV SCH (09:12)
[2018-12-05] MEDS: ALLOPURINOL 300 MG TABLET PO SCH (09:12)
[2018-12-05] MEDS: INSULIN GLARGINE 100 UNIT/ML SUBCUT SCH (09:12)
[2018-12-05] MEDS ORDERED: INSULIN GLARGINE 100 UNIT/ML SUBCUT ONE (09:30)
[2018-12-05] MEDS ORDERED: MELATONIN 3 MG TABLET PO PRN (09:47)
[2018-12-06] MEDS: ALBUTEROL/IPRATROPIUM 3 ML NEB RESP TX SCH ×6 (03:41→23:04)
[2018-12-06 04:19] LABS: Basophils % 0.1 % (0.0-0.8); Eosinophils % 0.3 % (0.00-10.9); Hematocrit 26.3 VOL% (42.0-52.0); Hemoglobin 7.5 GM/DL (14.0-18.0); Immature Granulocytes % 1.3 %; Immature Granulocytes Absolute 0.15 #; Lymphocytes # 1.9 10*3/uL (1.4-4.0); Lymphocytes % 15.9 % (21.2-54.2); Mean Corpuscular HGB Conc 28.5 GM/DL (32-36); Mean Corpuscular Hemoglobin 24 PG (27-34); Mean Platelet Volume 10.3 FL (9.6-12.0); Monocytes # 1.7 10*3/uL (0.11-0.8); Monocytes % 14.2 % (1.7-12.7); NRBC # 0.36 10*3/uL; Neutrophils # 8.2 10*3/uL (1.4-7.4); Neutrophils % 68.2 % (38.7-73.9); Platelet Count 322 T/CUMM (130-400); Red Blood Count 3.17 MC/CUMM (3.8-5.5); Red Cell Distribution Width 17.7 % (9.3-17.3); White Blood Count 11.9 T/CUMM (4-12)
[2018-12-06 04:52] LABS: Calcium 8.6 MG/DL (8.5-10.1)
[2018-12-06 04:57] LABS: Hypochromasia 1+; Platelet Estimate Adequate
[2018-12-06] MEDS: HEPARIN 5,000 UNIT/1 ML VIAL SUBCUT SCH ×3 (07:03→22:58)
[2018-12-06] MEDS: INSULIN LISPRO 100 UNIT/ML SUBCUT SCH ×5 (09:02→21:44)
[2018-12-06] MEDS: FUROSEMIDE 40 MG/4 ML VIAL IV SCH (09:05)
[2018-12-06] MEDS: ALLOPURINOL 300 MG TABLET PO SCH (09:06)
[2018-12-06] MEDS: GABAPENTIN 100 MG CAPSULE PO SCH ×2 (09:06→21:44)
[2018-12-06] MEDS: ROSUVASTATIN 20 MG TABLET PO SCH (09:06)
[2018-12-06] MEDS: ASPIRIN EC 81 MG TABLET PO SCH (09:06)
[2018-12-06] MEDS: INSULIN GLARGINE 100 UNIT/ML SUBCUT SCH (09:06)
[2018-12-06] MEDS: CARVEDILOL 6.25 MG TABLET PO SCH ×2 (09:06→21:44)
[2018-12-06] MEDS: predniSONE 10 MG TABLET PO SCH (09:06)
[2018-12-06] MEDS: FAMOTIDINE 20 MG TABLET PO SCH (09:07)
[2018-12-06] MEDS: POLYETHYLENE GLYCOL POWDER 17 GM PACK PO SCH (09:07)
[2018-12-06] MEDS: THEOPHYLLINE ER (24 HR) 400 MG CAPSULE PO SCH (09:07)
[2018-12-06] MEDS: FUROSEMIDE 80 MG TABLET PO SCH (17:30)
[2018-12-06] MEDS ORDERED: BISACODYL 5 MG TABLET PO ONE (21:00)
[2018-12-07] MEDS: ALBUTEROL/IPRATROPIUM 3 ML NEB RESP TX SCH ×6 (02:45→23:00)
[2018-12-07 07:20] LABS: Eosinophils # 0.1 10*3/uL (0.0-0.87); Hematocrit 26.8 VOL% (42.0-52.0); Hemoglobin 7.7 GM/DL (14.0-18.0); Immature Granulocytes % 0.8 %; Immature Granulocytes Absolute 0.09 #; Lymphocytes # 1.8 10*3/uL (1.4-4.0); Lymphocytes % 16.5 % (21.2-54.2); Mean Corpuscular HGB Conc 28.7 GM/DL (32-36); Mean Corpuscular Hemoglobin 24 PG (27-34); Mean Corpuscular Volume 82.2 FL (87-102); Mean Platelet Volume 9.7 FL (9.6-12.0); Monocytes # 1.3 10*3/uL (0.11-0.8); Monocytes % 11.8 % (1.7-12.7); NRBC # 0.39 10*3/uL; Neutrophils # 7.5 10*3/uL (1.4-7.4); Neutrophils % 69.9 % (38.7-73.9); Platelet Count 311 T/CUMM (130-400); Red Blood Count 3.26 MC/CUMM (3.8-5.5); Red Cell Distribution Width 18.1 % (9.3-17.3); White Blood Count 10.7 T/CUMM (4-12)
[2018-12-07 07:38] LABS: Hypochromasia 1+; Platelet Estimate Adequate
[2018-12-07 07:53] LABS: Calcium 8.7 MG/DL (8.5-10.1); Osmolality,Calculated 301.8 MOS/KG (273-304)
[2018-12-07] MEDS: HEPARIN 5,000 UNIT/1 ML VIAL SUBCUT SCH ×3 (09:22→23:48)
[2018-12-07] MEDS: INSULIN LISPRO 100 UNIT/ML SUBCUT SCH ×4 (09:22→20:55)
[2018-12-07] MEDS: FUROSEMIDE 80 MG TABLET PO SCH ×2 (09:22→15:39)
[2018-12-07] MEDS: ASPIRIN EC 81 MG TABLET PO SCH (09:22)
[2018-12-07] MEDS: THEOPHYLLINE ER (24 HR) 400 MG CAPSULE PO SCH (09:22)
[2018-12-07] MEDS: ALLOPURINOL 300 MG TABLET PO SCH (09:22)
[2018-12-07] MEDS: FAMOTIDINE 20 MG TABLET PO SCH (09:23)
[2018-12-07] MEDS: GABAPENTIN 100 MG CAPSULE PO SCH ×2 (09:23→20:55)
[2018-12-07] MEDS: CARVEDILOL 6.25 MG TABLET PO SCH ×2 (09:23→20:55)
[2018-12-07] MEDS: ROSUVASTATIN 20 MG TABLET PO SCH (09:23)
[2018-12-07] MEDS: predniSONE 10 MG TABLET PO SCH (09:23)
[2018-12-07] MEDS: INSULIN GLARGINE 100 UNIT/ML SUBCUT SCH (09:49)
[2018-12-07] MEDS: POLYETHYLENE GLYCOL POWDER 17 GM PACK PO SCH (09:49)
[2018-12-08] MEDS: ALBUTEROL/IPRATROPIUM 3 ML NEB RESP TX SCH ×6 (03:10→23:42)
[2018-12-08 04:59] LABS: Eosinophils # 0.1 10*3/uL (0.0-0.87); Eosinophils % 1.2 % (0.00-10.9); Hematocrit 26.8 VOL% (42.0-52.0); Hemoglobin 7.7 GM/DL (14.0-18.0); Immature Granulocytes % 0.9 %; Immature Granulocytes Absolute 0.09 #; Lymphocytes # 1.7 10*3/uL (1.4-4.0); Lymphocytes % 16.4 % (21.2-54.2); Mean Corpuscular HGB Conc 28.7 GM/DL (32-36); Mean Corpuscular Hemoglobin 24 PG (27-34); Mean Corpuscular Volume 82.2 FL (87-102); Mean Platelet Volume 10.8 FL (9.6-12.0); Monocytes # 1.3 10*3/uL (0.11-0.8); Monocytes % 12.3 % (1.7-12.7); Neutrophils # 7.2 10*3/uL (1.4-7.4); Neutrophils % 69.2 % (38.7-73.9); Platelet Count 348 T/CUMM (130-400); Red Blood Count 3.26 MC/CUMM (3.8-5.5); Red Cell Distribution Width 17.8 % (9.3-17.3); White Blood Count 10.4 T/CUMM (4-12)
[2018-12-08 05:07] LABS: Albumin 2.9 G/DL (3.4-5.0); Calcium 8.5 MG/DL (8.5-10.1); Osmolality,Calculated 299.5 MOS/KG (273-304); Potassium 4.4 MMOL/L (3.5-5.1)
[2018-12-08 05:08] LABS: Uric Acid 8.9 MG/DL (3.5-7.2)
[2018-12-08 05:26] LABS: Polychromasia Few; Target Cells Few
[2018-12-08 05:27] LABS: Platelet Estimate Normal
[2018-12-08] MEDS: HEPARIN 5,000 UNIT/1 ML VIAL SUBCUT SCH (09:13)
[2018-12-08] MEDS: THEOPHYLLINE ER (24 HR) 400 MG CAPSULE PO SCH (09:14)
[2018-12-08] MEDS: FUROSEMIDE 80 MG TABLET PO SCH ×2 (09:14→17:05)
[2018-12-08] MEDS: ROSUVASTATIN 20 MG TABLET PO SCH (09:14)
[2018-12-08] MEDS: GABAPENTIN 100 MG CAPSULE PO SCH ×2 (09:14→21:31)
[2018-12-08] MEDS: FAMOTIDINE 20 MG TABLET PO SCH (09:14)
[2018-12-08] MEDS: CARVEDILOL 6.25 MG TABLET PO SCH ×2 (09:15→21:32)
[2018-12-08] MEDS: INSULIN LISPRO 100 UNIT/ML SUBCUT SCH ×4 (09:15→21:32)
[2018-12-08] MEDS: ALLOPURINOL 300 MG TABLET PO SCH ×2 (09:15→21:31)
[2018-12-08] MEDS: ASPIRIN EC 81 MG TABLET PO SCH (09:15)
[2018-12-08] MEDS: INSULIN GLARGINE 100 UNIT/ML SUBCUT SCH (09:15)
[2018-12-08] MEDS: predniSONE 10 MG TABLET PO SCH (09:15)
[2018-12-08] MEDS: POLYETHYLENE GLYCOL POWDER 17 GM PACK PO SCH (09:16)
[2018-12-08] MEDS ORDERED: EPOETIN ALFA 10,000 UNIT/1 ML VIAL SUBCUT ONE (12:02)
[2018-12-08 15:02] LABS: Apearance,Urine CLOUDY (Clear); Bilirubin,Urine Negative (Negative); Blood, Urine Large mg/dL (Negative); Glucose,Urine (UA) Negative (Negative); Ketones,Urine Negative (Negative); Mucus,Urine Occasional /LPF (Occasional); Nitrite,Urine Negative (Negative); Protein,Urine 30 MG/DL; RBC,Urine 545 /HPF (0-4); Squamous Epithelial Cell,Urine Occasional /HPF (0-10); Urine Color Yellow (Yellow); Urine Specific Gravity 1.013 (1.001-1.035); Urine Urobilinogen < 2.0 EU/DL (0.2-1.0); WBC,Urine 13 /HPF (0-6)
[2018-12-08] MEDS: cefTRIAXone 1,000 MG in SYRINGE 1 EACH IV SCH (17:05)
[2018-12-09] MEDS: ALBUTEROL/IPRATROPIUM 3 ML NEB RESP TX SCH ×4 (03:59→14:43)
[2018-12-09] MEDS ORDERED: cefTRIAXone 1,000 MG in SYRINGE 1 EACH IV ONE (06:00)
[2018-12-09 06:53] LABS: Eosinophils # 0.2 10*3/uL (0.0-0.87); Eosinophils % 1.7 % (0.00-10.9); Hematocrit 26.4 VOL% (42.0-52.0); Hemoglobin 7.6 GM/DL (14.0-18.0); Immature Granulocytes % 0.5 %; Immature Granulocytes Absolute 0.05 #; Lymphocytes # 1.6 10*3/uL (1.4-4.0); Lymphocytes % 16.3 % (21.2-54.2); Mean Corpuscular HGB Conc 28.8 GM/DL (32-36); Mean Corpuscular Hemoglobin 24 PG (27-34); Mean Corpuscular Volume 81.7 FL (87-102); Mean Platelet Volume 10.3 FL (9.6-12.0); Monocytes # 1.2 10*3/uL (0.11-0.8); Monocytes % 12.6 % (1.7-12.7); NRBC # 0.17 10*3/uL; Neutrophils # 6.8 10*3/uL (1.4-7.4); Neutrophils % 68.9 % (38.7-73.9); Platelet Count 320 T/CUMM (130-400); Red Blood Count 3.23 MC/CUMM (3.8-5.5); Red Cell Distribution Width 17.9 % (9.3-17.3); White Blood Count 9.8 T/CUMM (4-12)
[2018-12-09 07:10] LABS: Albumin 2.6 G/DL (3.4-5.0); Calcium 8.5 MG/DL (8.5-10.1); Osmolality,Calculated 302.3 MOS/KG (273-304); Potassium 4.1 MMOL/L (3.5-5.1)
[2018-12-09 07:12] LABS: Hypochromasia 1+; Ovalocytes Slight; Platelet Estimate Adequate
[2018-12-09] MEDS: ROSUVASTATIN 20 MG TABLET PO SCH (08:20)
[2018-12-09] MEDS: FAMOTIDINE 20 MG TABLET PO SCH (08:21)
[2018-12-09] MEDS: THEOPHYLLINE ER (24 HR) 400 MG CAPSULE PO SCH (08:21)
[2018-12-09] MEDS: ASPIRIN EC 81 MG TABLET PO SCH (08:21)
[2018-12-09] MEDS: ALLOPURINOL 300 MG TABLET PO SCH (08:21)
[2018-12-09] MEDS: predniSONE 10 MG TABLET PO SCH (08:21)
[2018-12-09] MEDS: CARVEDILOL 6.25 MG TABLET PO SCH (08:21)
[2018-12-09] MEDS: GABAPENTIN 100 MG CAPSULE PO SCH (08:21)
[2018-12-09] MEDS: FUROSEMIDE 80 MG TABLET PO SCH (08:22)
[2018-12-09] MEDS: INSULIN GLARGINE 100 UNIT/ML SUBCUT SCH (08:22)
[2018-12-09] MEDS: INSULIN LISPRO 100 UNIT/ML SUBCUT SCH ×2 (08:23→13:24)
[2018-12-09] MEDS: POLYETHYLENE GLYCOL POWDER 17 GM PACK PO SCH (10:22)
[2018-12-09] MEDS ORDERED: LACTULOSE 20 GM/30 ML UDCUP PO ONE (11:20)
[2018-12-09 12:18] VITALS: BP 132/68
[2018-12-09] MEDS: cefTRIAXone 1,000 MG in SYRINGE 1 EACH IV SCH (13:16)
== END 2018-12-09 15:26 | disposition swing bed (61) | DRG 291 ==
LOC: EDUNIT# → N.ED 21:04 → N.EDINP 22:58 → SUATTDRO 22:58 → N.TELEN 23:40 → N.ICU 11-30 01:15 → N.5E 12-03 13:54
PROVIDERS: ADMIT Internal Medicine Nephrology; ATTEND Internal Medicine

== ENCOUNTER 2018-12-19 08:52 | Inpatient (IN) ==
[2018-12-19 10:57] LABS: Basophils % 0.2 % (0.0-0.8); Eosinophils # 0.2 10*3/uL (0.0-0.87); Eosinophils % 1.6 % (0.00-10.9); Hematocrit 25.5 VOL% (42.0-52.0); Hemoglobin 7.3 GM/DL (14.0-18.0); Immature Granulocytes % 0.5 %; Immature Granulocytes Absolute 0.05 #; Lymphocytes # 1.4 10*3/uL (1.4-4.0); Lymphocytes % 14.2 % (21.2-54.2); Mean Corpuscular HGB Conc 28.6 GM/DL (32-36); Mean Corpuscular Hemoglobin 23 PG (27-34); Mean Corpuscular Volume 81.7 FL (87-102); Mean Platelet Volume 10.4 FL (9.6-12.0); Monocytes # 0.8 10*3/uL (0.11-0.8); Monocytes % 8.5 % (1.7-12.7); NRBC # 0.02 10*3/uL; Neutrophils # 7.3 10*3/uL (1.4-7.4); Platelet Count 228 T/CUMM (130-400); Red Blood Count 3.12 MC/CUMM (3.8-5.5); Red Cell Distribution Width 17.8 % (9.3-17.3); White Blood Count 9.7 T/CUMM (4-12)
[2018-12-19 11:17] LABS: Alanine Aminotransferase 39 U/L (16-61); Albumin 2.8 G/DL (3.4-5.0); Alkaline Phosphatase 212 U/L (45-117); Aspartate Amino Transferase 27 U/L (0-37); Bilirubin,Total < 0.39 MG/DL (0.2-1.0); Blood Urea Nitrogen 66 MG/DL (7-18); Calcium 8.8 MG/DL (8.5-10.1); Glucose 208 MG/DL (74-106); Osmolality,Calculated 294.1 MOS/KG (273-304); Potassium 3.7 MMOL/L (3.5-5.1); Sodium 135 MMOL/L (136-145); Total Protein 9.1 G/DL (6.4-8.3)
[2018-12-19 11:27] LABS: Hypochromasia 2+; Platelet Estimate Adequate
[2018-12-19 12:28] LABS: Apearance,Urine Slightly Hazy (Clear); Bacteria,Urine Occasional /HPF (Few); Bilirubin,Urine Negative (Negative); Blood, Urine Moderate mg/dL (Negative); Glucose,Urine (UA) Negative (Negative); Ketones,Urine Negative (Negative); Mucus,Urine Occasional /LPF (Occasional); Nitrite,Urine Negative (Negative); Protein,Urine 30 MG/DL; RBC,Urine 115 /HPF (0-4); Squamous Epithelial Cell,Urine Occasional /HPF (0-10); Urine Color Yellow (Yellow); Urine Specific Gravity 1.011 (1.001-1.035); Urine Urobilinogen < 2.0 EU/DL (0.2-1.0); WBC,Urine 2 /HPF (0-6)
[2018-12-19] MEDS ORDERED: ACETAMINOPHEN 325 MG TABLET PO PRN (14:14)
[2018-12-19] MEDS ORDERED: ALBUTEROL 2.5 MG/3 ML NEB RESP TX PRN (14:26)
[2018-12-19] MEDS ORDERED: PANTOPRAZOLE 40 MG VIAL IV SCH (14:30)
[2018-12-19] MEDS ORDERED: SODIUM PHOSPHATE ENEMA 133 ML BOTTLE RECTAL STA (14:41)
[2018-12-19] MEDS ORDERED: MAGNESIUM HYDROXIDE SUSP 30 ML UDCUP PO STA (14:41)
[2018-12-19] MEDS ORDERED: BISACODYL 5 MG TABLET PO ONE (14:42)
[2018-12-19 15:00] LABS: ABG Base Excess 9.8 MMOL/L (-2.5-2.5); ABG HCO3 33.4 MMOL/L (20-26); ABG Oxygen Saturation 91.4 % (95-100); ABG PCO2 57.6 MM HG (35-48); ABG PH 7.403 (7.35-7.45); ABG PO2 62.4 MM HG (80-95); ABG TCO2 33.9 MMOL/L (23-27); Allen Test Positive
[2018-12-19 19:42] LABS: Apearance,Urine CLEAR (Clear); Bilirubin,Urine Negative (Negative); Blood, Urine Moderate mg/dL (Negative); Glucose,Urine (UA) Negative (Negative); Ketones,Urine Negative (Negative); Mucus,Urine Occasional /LPF (Occasional); Nitrite,Urine Negative (Negative); Protein,Urine 30 MG/DL; RBC,Urine 96 /HPF (0-4); Squamous Epithelial Cell,Urine Occasional /HPF (0-10); Urine Color Straw (Yellow); Urine Urobilinogen < 2.0 EU/DL (0.2-1.0); WBC,Urine 19 /HPF (0-6)
[2018-12-19] MEDS: ALBUTEROL/IPRATROPIUM 3 ML NEB RESP TX SCH (19:45)
[2018-12-19] MEDS: INSULIN GLARGINE 100 UNIT/ML SUBCUT SCH (20:59)
[2018-12-19] MEDS: GABAPENTIN 100 MG CAPSULE PO SCH (20:59)
[2018-12-19] MEDS: DOCUSATE SODIUM 100 MG CAPSULE PO SCH (20:59)
[2018-12-19] MEDS: CARVEDILOL 6.25 MG TABLET PO SCH (20:59)
[2018-12-19] MEDS: FAMOTIDINE 20 MG TABLET PO SCH (20:59)
[2018-12-20] MEDS: ALBUTEROL/IPRATROPIUM 3 ML NEB RESP TX SCH ×5 (00:50→20:11)
[2018-12-20 04:45] LABS: Albumin 2.6 G/DL (3.4-5.0); Bilirubin,Total 0.7 MG/DL (0.2-1.0); Calcium 8.9 MG/DL (8.5-10.1); Potassium 3.8 MMOL/L (3.5-5.1); Total Protein 8.7 G/DL (6.4-8.3)
[2018-12-20 05:23] LABS: Basophils % 0.1 % (0.0-0.8); Eosinophils # 0.2 10*3/uL (0.0-0.87); Eosinophils % 2.1 % (0.00-10.9); Hematocrit 27.1 VOL% (42.0-52.0); Immature Granulocytes % 0.5 %; Immature Granulocytes Absolute 0.04 #; Lymphocytes # 1.1 10*3/uL (1.4-4.0); Lymphocytes % 13.1 % (21.2-54.2); Mean Corpuscular Hemoglobin 23 PG (27-34); Mean Corpuscular Volume 82.1 FL (87-102); Mean Platelet Volume 10.7 FL (9.6-12.0); Monocytes # 0.7 10*3/uL (0.11-0.8); Monocytes % 8.3 % (1.7-12.7); Neutrophils # 6.4 10*3/uL (1.4-7.4); Neutrophils % 75.9 % (38.7-73.9); Platelet Count 219 T/CUMM (130-400); Red Cell Distribution Width 17.8 % (9.3-17.3); White Blood Count 8.5 T/CUMM (4-12)
[2018-12-20 05:30] LABS: Hemoglobin 7.6 GM/DL (14.0-18.0)
[2018-12-20 05:48] LABS: Anisocytosis 1+; Hypochromasia 2+; Macrocytosis 1+; Platelet Estimate Normal
[2018-12-20] MEDS: CARVEDILOL 6.25 MG TABLET PO SCH ×2 (08:20→20:07)
[2018-12-20] MEDS: GABAPENTIN 100 MG CAPSULE PO SCH ×2 (08:20→20:06)
[2018-12-20] MEDS: ASPIRIN EC 81 MG TABLET PO SCH (08:20)
[2018-12-20] MEDS: POLYETHYLENE GLYCOL POWDER 17 GM PACK PO SCH (08:20)
[2018-12-20] MEDS: DOCUSATE SODIUM 100 MG CAPSULE PO SCH ×2 (08:20→20:07)
[2018-12-20] MEDS: INSULIN GLARGINE 100 UNIT/ML SUBCUT SCH ×2 (08:21→20:34)
[2018-12-20] MEDS: ROSUVASTATIN 20 MG TABLET PO SCH (08:21)
[2018-12-20] MEDS ORDERED: MAGNESIUM CITRATE 300 ML BOTTLE PO ONE (08:36)
[2018-12-20] MEDS: LINACLOTIDE 145 MCG CAPSULE PO SCH (08:43)
[2018-12-20] MEDS ORDERED: hydrALAZINE 20 MG/1 ML VIAL IV PRN (15:15)
[2018-12-20] MEDS: FAMOTIDINE 20 MG TABLET PO SCH (20:06)
[2018-12-21] MEDS: ALBUTEROL/IPRATROPIUM 3 ML NEB RESP TX SCH ×4 (00:10→19:09)
[2018-12-21 05:33] LABS: Albumin 2.6 G/DL (3.4-5.0); Bilirubin,Total 1.2 MG/DL (0.2-1.0); Calcium 8.9 MG/DL (8.5-10.1); Osmolality,Calculated 287.7 MOS/KG (273-304); Potassium 3.8 MMOL/L (3.5-5.1); Total Protein 8.6 G/DL (6.4-8.3)
[2018-12-21 05:49] LABS: Basophils % 0.3 % (0.0-0.8); Eosinophils # 0.2 10*3/uL (0.0-0.87); Eosinophils % 2.1 % (0.00-10.9); Hemoglobin 7.6 GM/DL (14.0-18.0); Immature Granulocytes Absolute 0.08 #; Lymphocytes # 1.2 10*3/uL (1.4-4.0); Lymphocytes % 15.5 % (21.2-54.2); Mean Corpuscular HGB Conc 27.1 GM/DL (32-36); Mean Corpuscular Hemoglobin 23 PG (27-34); Mean Corpuscular Volume 84.1 FL (87-102); Mean Platelet Volume 10.2 FL (9.6-12.0); Monocytes # 0.7 10*3/uL (0.11-0.8); Monocytes % 9.4 % (1.7-12.7); Neutrophils # 5.5 10*3/uL (1.4-7.4); Neutrophils % 71.7 % (38.7-73.9); Platelet Count 216 T/CUMM (130-400); Red Blood Count 3.33 MC/CUMM (3.8-5.5); Red Cell Distribution Width 17.9 % (9.3-17.3); White Blood Count 7.7 T/CUMM (4-12)
[2018-12-21 05:51] LABS: Hypochromasia 1+; Ovalocytes Slight; Platelet Estimate Adequate
[2018-12-21] MEDS: CARVEDILOL 6.25 MG TABLET PO SCH ×2 (09:19→21:51)
[2018-12-21] MEDS: THEOPHYLLINE ER 300 MG TABLET PO SCH ×2 (09:19→18:15)
[2018-12-21] MEDS: ROSUVASTATIN 20 MG TABLET PO SCH (09:19)
[2018-12-21] MEDS: ASPIRIN EC 81 MG TABLET PO SCH (09:20)
[2018-12-21] MEDS: LINACLOTIDE 145 MCG CAPSULE PO SCH (09:20)
[2018-12-21] MEDS: GABAPENTIN 100 MG CAPSULE PO SCH ×2 (09:21→21:51)
[2018-12-21] MEDS: DOCUSATE SODIUM 100 MG CAPSULE PO SCH (09:21)
[2018-12-21] MEDS: INSULIN GLARGINE 100 UNIT/ML SUBCUT SCH ×2 (09:21→21:52)
[2018-12-21] MEDS: POLYETHYLENE GLYCOL POWDER 17 GM PACK PO SCH (09:21)
[2018-12-21] MEDS ORDERED: ONDANSETRON 4 MG/2 ML VIAL IV PRN (10:28)
[2018-12-21] MEDS ORDERED: cefTRIAXone 1,000 MG in SYRINGE 1 EACH IV ONE (12:40)
[2018-12-21] MEDS ORDERED: DEXTROSE 50% 25 GM/50 ML VIAL IV ONE ×2 (13:05→13:45)
[2018-12-21] MEDS ORDERED: ALBUTEROL/IPRATROPIUM 3 ML NEB RESP TX ONE (13:32)
[2018-12-21 13:43] LABS: ABG Base Excess 11.6 MMOL/L (-2.5-2.5); ABG HCO3 35.3 MMOL/L (20-26); ABG Oxygen Saturation 96.5 % (95-100); ABG PCO2 65.6 MM HG (35-48); ABG PH 7.378 (7.35-7.45); ABG PO2 85.6 MM HG (80-95); ABG TCO2 36.3 MMOL/L (23-27); Allen Test Positive
[2018-12-21] MEDS ORDERED: ALBUTEROL 2.5 MG/3 ML NEB RESP TX ONE (14:34)
[2018-12-21] MEDS: SODIUM CHLORIDE 0.9% 250 ML IV SCH (14:36)
[2018-12-21] MEDS ORDERED: MIDAZOLAM 2 MG/2 ML VIAL ONE (16:21)
[2018-12-21] MEDS ORDERED: ONDANSETRON 4 MG/2 ML VIAL ONE (16:21)
[2018-12-21] MEDS ORDERED: fentaNYL 100 MCG/2 ML VIAL ONE (16:21)
[2018-12-21] MEDS ORDERED: GLYCOPYRROLATE 0.4 MG/2 ML VIAL ONE (16:21)
[2018-12-21] MEDS ORDERED: PROPOFOL 200 MG/20 ML VIAL IV ONE (16:21)
[2018-12-21] MEDS ORDERED: SEVOFLURANE 1 UNIT/15 MINUTE INH ONE (16:21)
[2018-12-21] MEDS ORDERED: DEXAMETHASONE 10 MG/1 ML VIAL ONE (16:21)
[2018-12-21] MEDS ORDERED: SUCCINYLCHOLINE 200 MG/10 ML VIAL ONE (16:22)
[2018-12-21] MEDS ORDERED: PHENYLEPHRINE 1 MG/10 ML SYRINGE IV ONE (16:22)
[2018-12-21] MEDS ORDERED: SODIUM CHLORIDE 0.9% 250 ML IV ONE (16:22)
[2018-12-21] MEDS ORDERED: FUROSEMIDE 40 MG/4 ML VIAL ONE (16:40)
[2018-12-21] MEDS ORDERED: FUROSEMIDE 40 MG/4 ML VIAL IV ONE (16:45)
[2018-12-21] MEDS: DOCUSATE/SENNA 50-8.6 MG TABLET PO SCH (21:51)
[2018-12-21] MEDS: FAMOTIDINE 20 MG TABLET PO SCH (21:52)
[2018-12-22] MEDS: ALBUTEROL/IPRATROPIUM 3 ML NEB RESP TX SCH ×4 (00:41→19:58)
[2018-12-22 06:37] LABS: Basophils % 0.1 % (0.0-0.8); Eosinophils % 0.3 % (0.00-10.9); Hematocrit 25.6 VOL% (42.0-52.0); Hemoglobin 7.2 GM/DL (14.0-18.0); Immature Granulocytes % 0.6 %; Immature Granulocytes Absolute 0.04 #; Lymphocytes # 0.7 10*3/uL (1.4-4.0); Lymphocytes % 9.4 % (21.2-54.2); Mean Corpuscular HGB Conc 28.1 GM/DL (32-36); Mean Corpuscular Hemoglobin 23 PG (27-34); Mean Corpuscular Volume 82.3 FL (87-102); Mean Platelet Volume 10.4 FL (9.6-12.0); Monocytes # 0.4 10*3/uL (0.11-0.8); Monocytes % 5.2 % (1.7-12.7); Neutrophils % 84.4 % (38.7-73.9); Platelet Count 205 T/CUMM (130-400); Red Blood Count 3.11 MC/CUMM (3.8-5.5); Red Cell Distribution Width 17.9 % (9.3-17.3); White Blood Count 7.1 T/CUMM (4-12)
[2018-12-22 06:45] LABS: Hypochromasia 1+; Platelet Estimate Normal; Polychromasia Few
[2018-12-22 06:48] LABS: Albumin 2.7 G/DL (3.4-5.0); Bilirubin,Total 0.4 MG/DL (0.2-1.0); Calcium 8.9 MG/DL (8.5-10.1); Osmolality,Calculated 285.8 MOS/KG (273-304); Potassium 4.1 MMOL/L (3.5-5.1); Total Protein 8.7 G/DL (6.4-8.3)
[2018-12-22] MEDS: THEOPHYLLINE ER 300 MG TABLET PO SCH ×2 (10:02→17:28)
[2018-12-22] MEDS: ROSUVASTATIN 20 MG TABLET PO SCH (10:02)
[2018-12-22] MEDS: CARVEDILOL 6.25 MG TABLET PO SCH ×2 (10:02→21:35)
[2018-12-22] MEDS: GABAPENTIN 100 MG CAPSULE PO SCH ×2 (10:02→21:35)
[2018-12-22] MEDS: DOCUSATE/SENNA 50-8.6 MG TABLET PO SCH ×2 (10:02→21:35)
[2018-12-22] MEDS: INSULIN GLARGINE 100 UNIT/ML SUBCUT SCH ×2 (10:03→22:20)
[2018-12-22] MEDS: POLYETHYLENE GLYCOL POWDER 17 GM PACK PO SCH (10:03)
[2018-12-22] MEDS: ASPIRIN EC 81 MG TABLET PO SCH (10:03)
[2018-12-22] MEDS: LINACLOTIDE 145 MCG CAPSULE PO SCH (11:13)
[2018-12-22] MEDS ORDERED: PHENOL 1.4% THROAT SPRAY 177 ML BOTTLE PO PRN (11:14)
[2018-12-22] MEDS ORDERED: SODIUM CHLORIDE 0.9% 1,000 ML IV PRN (12:26)
[2018-12-22] MEDS: cefTRIAXone 1,000 MG in SYRINGE 1 EACH IV SCH (14:08)
[2018-12-22] MEDS: SODIUM CHLORIDE 0.9% 250 ML IV SCH ×2 (14:53→17:28)
[2018-12-22] MEDS: FUROSEMIDE 100 MG/10 ML VIAL IV SCH (16:41)
[2018-12-22] MEDS: FAMOTIDINE 20 MG TABLET PO SCH (21:35)
[2018-12-23] MEDS: ALBUTEROL/IPRATROPIUM 3 ML NEB RESP TX SCH ×4 (01:46→19:53)
[2018-12-23] MEDS: LINACLOTIDE 145 MCG CAPSULE PO SCH (07:10)
[2018-12-23 07:13] LABS: Basophils % 0.2 % (0.0-0.8); Eosinophils # 0.1 10*3/uL (0.0-0.87); Eosinophils % 1.2 % (0.00-10.9); Hematocrit 28.7 VOL% (42.0-52.0); Immature Granulocytes % 0.4 %; Immature Granulocytes Absolute 0.03 #; Lymphocytes # 1.2 10*3/uL (1.4-4.0); Lymphocytes % 13.6 % (21.2-54.2); Mean Corpuscular HGB Conc 29.6 GM/DL (32-36); Mean Corpuscular Hemoglobin 25 PG (27-34); Mean Corpuscular Volume 83.7 FL (87-102); Mean Platelet Volume 10.8 FL (9.6-12.0); Monocytes # 0.7 10*3/uL (0.11-0.8); Monocytes % 7.8 % (1.7-12.7); Neutrophils # 6.6 10*3/uL (1.4-7.4); Neutrophils % 76.8 % (38.7-73.9); Platelet Count 191 T/CUMM (130-400); Red Blood Count 3.43 MC/CUMM (3.8-5.5); Red Cell Distribution Width 17.5 % (9.3-17.3); White Blood Count 8.6 T/CUMM (4-12)
[2018-12-23 07:14] LABS: Hemoglobin 8.5 GM/DL (14.0-18.0)
[2018-12-23 07:16] LABS: Albumin 2.9 G/DL (3.4-5.0); Bilirubin,Total 0.6 MG/DL (0.2-1.0); Calcium 8.6 MG/DL (8.5-10.1); Osmolality,Calculated 296.4 MOS/KG (273-304); Potassium 3.6 MMOL/L (3.5-5.1); Total Protein 9.1 G/DL (6.4-8.3)
[2018-12-23 07:21] LABS: Hypochromasia 2+; Microcytosis 1+; Spherocytes Slight
[2018-12-23 07:22] LABS: Platelet Estimate Adequate
[2018-12-23] MEDS: THEOPHYLLINE ER 300 MG TABLET PO SCH ×2 (08:32→17:00)
[2018-12-23] MEDS: GABAPENTIN 100 MG CAPSULE PO SCH ×2 (08:32→21:30)
[2018-12-23] MEDS: ROSUVASTATIN 20 MG TABLET PO SCH (08:32)
[2018-12-23] MEDS: FUROSEMIDE 100 MG/10 ML VIAL IV SCH ×2 (08:33→17:00)
[2018-12-23] MEDS: DOCUSATE/SENNA 50-8.6 MG TABLET PO SCH ×2 (08:33→22:07)
[2018-12-23] MEDS: CARVEDILOL 6.25 MG TABLET PO SCH ×2 (08:33→21:30)
[2018-12-23] MEDS: INSULIN GLARGINE 100 UNIT/ML SUBCUT SCH ×2 (08:35→22:00)
[2018-12-23] MEDS: ASPIRIN EC 81 MG TABLET PO SCH (08:35)
[2018-12-23] MEDS: POLYETHYLENE GLYCOL POWDER 17 GM PACK PO SCH (08:36)
[2018-12-23] MEDS: cefTRIAXone 1,000 MG in SYRINGE 1 EACH IV SCH (14:09)
[2018-12-23] MEDS: SODIUM CHLORIDE 0.9% 250 ML IV SCH (18:28)
[2018-12-23] MEDS: FAMOTIDINE 20 MG TABLET PO SCH (21:30)
[2018-12-24] MEDS: ALBUTEROL/IPRATROPIUM 3 ML NEB RESP TX SCH ×2 (01:33→07:46)
[2018-12-24 05:50] LABS: Basophils % 0.4 % (0.0-0.8); Eosinophils # 0.2 10*3/uL (0.0-0.87); Eosinophils % 2.5 % (0.00-10.9); Hematocrit 28.8 VOL% (42.0-52.0); Hemoglobin 8.3 GM/DL (14.0-18.0); Immature Granulocytes % 0.3 %; Immature Granulocytes Absolute 0.02 #; Lymphocytes # 1.2 10*3/uL (1.4-4.0); Lymphocytes % 16.6 % (21.2-54.2); Mean Corpuscular HGB Conc 28.8 GM/DL (32-36); Mean Corpuscular Hemoglobin 24 PG (27-34); Mean Corpuscular Volume 82.1 FL (87-102); Monocytes # 0.6 10*3/uL (0.11-0.8); Monocytes % 8.6 % (1.7-12.7); Neutrophils # 5.3 10*3/uL (1.4-7.4); Neutrophils % 71.6 % (38.7-73.9); Platelet Count 205 T/CUMM (130-400); Red Blood Count 3.51 MC/CUMM (3.8-5.5); Red Cell Distribution Width 17.6 % (9.3-17.3); White Blood Count 7.3 T/CUMM (4-12)
[2018-12-24 06:20] LABS: Alanine Aminotransferase 26 U/L (16-61); Albumin 2.7 G/DL (3.4-5.0); Alkaline Phosphatase 183 U/L (45-117); Aspartate Amino Transferase 26 U/L (0-37); Bilirubin,Total < 0.39 MG/DL (0.2-1.0); Blood Urea Nitrogen 54 MG/DL (7-18); Calcium 8.9 MG/DL (8.5-10.1); Glucose 121 MG/DL (74-106); Osmolality,Calculated 290.7 MOS/KG (273-304); Potassium 3.5 MMOL/L (3.5-5.1); Sodium 138 MMOL/L (136-145); Total Protein 9.2 G/DL (6.4-8.3)
[2018-12-24 06:27] LABS: Anisocytosis Slight; Giant Platelets Few; Macrocytosis Slight; Ovalocytes 1+; Platelet Estimate Normal
[2018-12-24] MEDS: LINACLOTIDE 145 MCG CAPSULE PO SCH (06:43)
[2018-12-24] MEDS: THEOPHYLLINE ER 300 MG TABLET PO SCH (08:15)
[2018-12-24] MEDS: ROSUVASTATIN 20 MG TABLET PO SCH (08:15)
[2018-12-24] MEDS: GABAPENTIN 100 MG CAPSULE PO SCH (08:15)
[2018-12-24] MEDS: ASPIRIN EC 81 MG TABLET PO SCH (08:15)
[2018-12-24] MEDS: FUROSEMIDE 100 MG/10 ML VIAL IV SCH (08:15)
[2018-12-24] MEDS: CARVEDILOL 6.25 MG TABLET PO SCH (08:15)
[2018-12-24] MEDS: DOCUSATE/SENNA 50-8.6 MG TABLET PO SCH (08:15)
[2018-12-24] MEDS: INSULIN GLARGINE 100 UNIT/ML SUBCUT SCH (08:31)
[2018-12-24] MEDS: POLYETHYLENE GLYCOL POWDER 17 GM PACK PO SCH (08:32)
[2018-12-24 12:21] VITALS: BP 136/60
[2018-12-27 16:06] LABS: Stone Source Right Ureter
== END 2018-12-24 13:30 | disposition swing bed (61) | DRG 659 ==
LOC: EDUNIT# → N.ED 08:52 → SUATTDRO 14:14 → N.EDINP 14:14 → SUPCPDRO 14:14 → N.ICU 16:28 → N.5E 12-20 21:44
PROVIDERS: ADMIT Internal Medicine Geriatric Medicine; ATTEND Internal Medicine

== ENCOUNTER 2019-03-02 07:05 | Inpatient (IN) ==
[2019-03-02 08:03] LABS: Basophils % 0.2 % (0.0-0.8); Eosinophils # 0.1 10*3/uL (0.0-0.87); Hematocrit 28.9 VOL% (42.0-52.0); Hemoglobin 8.3 GM/DL (14.0-18.0); Immature Granulocytes % 0.9 %; Lymphocytes # 0.4 10*3/uL (1.4-4.0); Lymphocytes % 3.3 % (21.2-54.2); Mean Corpuscular HGB Conc 28.7 GM/DL (32-36); Mean Corpuscular Volume 83.8 FL (87-102); Mean Platelet Volume 10.6 FL (9.6-12.0); Monocytes % 5.5 % (1.7-12.7); Neutrophils % 89.1 % (38.7-73.9); Platelet Count 267 T/CUMM (130-400); Red Blood Count 3.45 MC/CUMM (3.8-5.5); White Blood Count 11.7 T/CUMM (4-12)
[2019-03-02 08:25] LABS: Anisocytosis 2+; Band Neutrophils 19 % (0-10); Eosinophils 1 % (0-10); Hypochromasia 1+; Lymphocytes 5 % (20-55); Platelet Estimate Normal; Segmented Neutrophils 71 % (50-85); Total Cells Counted 100
[2019-03-02 08:26] LABS: Albumin 3.2 G/DL (3.4-5.0); Bilirubin,Total 0.6 MG/DL (0.2-1.0); Calcium 8.8 MG/DL (8.5-10.1); Osmolality,Calculated 287.4 MOS/KG (273-304); Poikilocytosis Slight; Polychromasia Slight; Total Protein 9.4 G/DL (6.4-8.3)
[2019-03-02] MEDS ORDERED: ONDANSETRON 4 MG/2 ML VIAL IV PRN (11:45)
[2019-03-02] MEDS ORDERED: MORPHINE 4 MG/1 ML VIAL IV PRN (11:45)
[2019-03-02] MEDS ORDERED: DEXTROSE 50% 25 GM/50 ML SYRINGE IV PRN (11:45)
[2019-03-02] MEDS ORDERED: GLUCAGON 1 MG VIAL IM PRN (11:45)
[2019-03-02] MEDS ORDERED: ALBUTEROL/IPRATROPIUM 3 ML NEB RESP TX PRN (15:22)
[2019-03-02] MEDS: INSULIN LISPRO 100 UNIT/ML SUBCUT SCH (15:41)
[2019-03-02] MEDS ORDERED: DEXTROSE 50% 25 GM/50 ML VIAL IV PRN (18:00)
[2019-03-02] MEDS: methylPREDNISolone SOD SUC 40 MG/1 ML VIAL IV SCH (19:15)
[2019-03-02] MEDS: CARVEDILOL 25 MG TABLET PO SCH (20:31)
[2019-03-02] MEDS ORDERED: INSULIN GLARGINE 100 UNIT/ML SUBCUT SCH (21:00)
[2019-03-03] MEDS: methylPREDNISolone SOD SUC 40 MG/1 ML VIAL IV SCH ×3 (02:17→17:58)
[2019-03-03] MEDS: INSULIN LISPRO 100 UNIT/ML SUBCUT SCH ×5 (03:04→22:00)
[2019-03-03 05:10] LABS: Hematocrit 29.5 VOL% (42.0-52.0); Hemoglobin 8.5 GM/DL (14.0-18.0); Immature Granulocytes % 1.1 %; Lymphocytes # 0.5 10*3/uL (1.4-4.0); Lymphocytes % 5.2 % (21.2-54.2); Mean Corpuscular HGB Conc 28.8 GM/DL (32-36); Mean Corpuscular Volume 82.9 FL (87-102); Monocytes % 0.8 % (1.7-12.7); Neutrophils % 92.9 % (38.7-73.9); Platelet Count 259 T/CUMM (130-400); Red Blood Count 3.56 MC/CUMM (3.8-5.5); White Blood Count 9.2 T/CUMM (4-12)
[2019-03-03 05:33] LABS: Band Neutrophils 1 % (0-10); Hypochromasia 1+; Lymphocytes 3 % (20-55); Microcytosis 1+; Platelet Estimate Normal; Polychromasia Few; Segmented Neutrophils 95 % (50-85); Target Cells Few; Total Cells Counted 100
[2019-03-03 05:37] LABS: Osmolality,Calculated 286.7 MOS/KG (273-304); Risk Ratio 2.34; Thyroid Stimulating Hormone 0.638 uIU/ml (0.358-3.74); VLDL CHOLESTEROL 9.8 MG/DL
[2019-03-03] MEDS ORDERED: ALLOPURINOL 300 MG TABLET PO SCH ×2 (09:00→09:24)
[2019-03-03] MEDS ORDERED: INSULIN GLARGINE 100 UNIT/ML SUBCUT SCH (09:22)
[2019-03-03] MEDS: ROSUVASTATIN 20 MG TABLET PO SCH (09:31)
[2019-03-03] MEDS: ASPIRIN EC 81 MG TABLET PO SCH (09:33)
[2019-03-03] MEDS: CARVEDILOL 25 MG TABLET PO SCH ×2 (09:33→22:00)
[2019-03-03] MEDS: PANTOPRAZOLE 40 MG TABLET PO SCH (09:33)
[2019-03-03] MEDS: FUROSEMIDE 40 MG TABLET PO SCH (09:33)
[2019-03-03] MEDS: THEOPHYLLINE ER 300 MG TABLET PO SCH ×2 (09:33→17:59)
[2019-03-03] MEDS: GABAPENTIN 100 MG CAPSULE PO SCH ×2 (09:36→21:59)
[2019-03-03] MEDS: MONTELUKAST 10 MG TABLET PO SCH ×2 (09:37→21:59)
[2019-03-03] MEDS ORDERED: SKIN HEALING OINT (AQUAPHOR) 50 GM TUBE TOP PRN (14:15)
[2019-03-04] MEDS: methylPREDNISolone SOD SUC 40 MG/1 ML VIAL IV SCH ×2 (02:08→09:45)
[2019-03-04 06:33] LABS: Basophils % 0.1 % (0.0-0.8); Hematocrit 27.6 VOL% (42.0-52.0); Immature Granulocytes % 0.7 %; Immature Granulocytes Absolute 0.09 #; Lymphocytes # 0.6 10*3/uL (1.4-4.0); Lymphocytes % 4.6 % (21.2-54.2); Mean Corpuscular Volume 82.4 FL (87-102); Mean Platelet Volume 10.7 FL (9.6-12.0); Monocytes % 2.2 % (1.7-12.7); Neutrophils % 92.4 % (38.7-73.9); Platelet Count 243 T/CUMM (130-400); Red Blood Count 3.35 MC/CUMM (3.8-5.5); Red Cell Distribution Width 19.9 % (9.3-17.3)
[2019-03-04 07:00] LABS: Band Neutrophils 1 % (0-10); Lymphocytes 4 % (20-55); Segmented Neutrophils 93 % (50-85); Total Cells Counted 100
[2019-03-04 07:01] LABS: Hypochromasia 1+; Microcytosis 1+; Ovalocytes Slight; Platelet Estimate Adequate
[2019-03-04 07:02] LABS: Calcium 8.9 MG/DL (8.5-10.1); Osmolality,Calculated 288.2 MOS/KG (273-304)
[2019-03-04] MEDS ORDERED: IRON SUCROSE 200 MG in SODIUM CHLORIDE 0.9% 100 ML IV SCH (09:00)
[2019-03-04] MEDS: INSULIN LISPRO 100 UNIT/ML SUBCUT SCH ×2 (09:45→13:09)
[2019-03-04] MEDS: GABAPENTIN 100 MG CAPSULE PO SCH (09:46)
[2019-03-04] MEDS: ROSUVASTATIN 20 MG TABLET PO SCH (09:46)
[2019-03-04] MEDS: ASPIRIN EC 81 MG TABLET PO SCH (09:46)
[2019-03-04] MEDS: FUROSEMIDE 40 MG TABLET PO SCH (09:46)
[2019-03-04] MEDS: MONTELUKAST 10 MG TABLET PO SCH (09:46)
[2019-03-04] MEDS: PANTOPRAZOLE 40 MG TABLET PO SCH (09:46)
[2019-03-04] MEDS: CARVEDILOL 25 MG TABLET PO SCH (09:47)
[2019-03-04] MEDS: THEOPHYLLINE ER 300 MG TABLET PO SCH (09:47)
[2019-03-04 12:57] VITALS: BP 137/67
== END 2019-03-04 16:45 | disposition hospice, home (50) | DRG 191 ==
LOC: EDUNIT# → EDBD → N.ED 07:05 → N.EDINP 11:29 → N.5E 13:45
PROVIDERS: ADMIT Internal Medicine; ATTEND Internal Medicine